=== PATIENT | male | born 1995 | race Caucasian/White ===

== ENCOUNTER 2020-05-25 02:02 | Emergency (ER) | payer SELFPAY ==
[~2020-05-25] VITALS: Ht 162.6 cm; Wt 77.0 kg
[2020-05-25] MEDS ORDERED: SODIUM CHLORIDE 0.9% 1,000 ML IV ONE (02:45)
[2020-05-25 03:01] LABS: CHLORIDE 106 mEq/L (98-107)
[2020-05-25 03:05] LABS: ETHANOL BLOOD < 10 mg/dL
[2020-05-25 03:11] LABS: BASOPHILS % 0.3 % (0.0-2.0); EOSINOPHILS % 0.1 % (0.0-5.0); HEMATOCRIT. 44.8 % (42.0-52.0); HEMOGLOBIN. 15.2 g/dL (14.0-18.0); LYMPHOCYTES % 20.8 % (20.0-50.0); MEAN CORPUSCULAR VOLUME 82.5 fL (80.0-94.0); MEAN PLATELET VOLUME 8.6 fl (7.4-10.4); MONOCYTES % 4.7 % (2.0-8.0); NEUTROPHILS % 74.1 % (40.0-76.0); PLATELET 226 x1000/uL (130-400); RED BLOOD CELL COUNT 5.43 mill/uL (4.7-6.1); RED CELL DISTRIBUTION WIDTH 14.6 % (11.6-14.6)
[2020-05-25 04:05] VITALS: BP 140/80
== END 2020-05-25 04:10 | disposition home or self-care (01) ==
LOC: ER 02:19
DX: R56.9 Unspecified convulsions (principal)
CPT/HCPCS: 36415; 70450; 80053; 80320; 85025; 93005; 96360; 99285; J7030; G0480